=== PATIENT | male | born 2000 | race Caucasian/White ===

== ENCOUNTER 2023-12-19 15:15 | Emergency (ER) | payer BC, SELFPAY ==
[2023-12-19 15:27] VITALS: BP 134/89
[2023-12-19 16:24] VITALS: BMI 41.0
[2023-12-19 16:26] VITALS: BP 139/81
[2023-12-19 16:39] LABS: % Basophils 0.4 % (0-2); % Immature Granulocytes 1.9 % (0-0.5); % Lymphocytes 17.5 % (20.5-51.1); % Monocytes 11.8 % (1.7-9.3); % Neutrophils 68.4 % (42.2-75.2); Absolute Immature Granulocytes 0.1 10^3/uL (0-0.05); Absolute Lymphocytes 0.5 10^3/uL (1.2-3.4); Absolute Monocytes 0.3 10^3/uL (0.1-0.6); Absolute Neutrophils 1.8 10^3/uL (1.4-6.5); Hematocrit 45.9 % (39.0-52.0); Hemoglobin 16.2 g/dL (13.0-18.0); Mean Corp Hgb Conc. 35.3 g/dL (33.0-37.0); Mean Corpuscular Hgb 29.1 pg (27.0-31.0); Mean Corpuscular Volume 82.4 fL (80.0-94.0); Mean Platelet Volume 10.8 fL (7.4-10.4); Nucleated Red Blood Cells % 0 % (-); Platelet Count 121 10^3/uL (130-400); Red Blood Cell Count 5.57 10^6/uL (4.70-6.10); Red Cell Dist. Width 12.9 % (11.5-14.5); White Blood Cell Count 2.6 10^3/uL (4.8-10.8)
[2023-12-19 16:50] LABS: ALT (SGPT) 181 U/L (0-50); AST (SGOT) 196 U/L (17-59); Albumin 4.2 g/dl (3.5-5.0); Alkaline Phosphatase 87 U/L (38-126); Blood Urea Nitrogen 16 mg/dl (9-20); Calcium 9.1 mg/dl (8.4-10.2); Carbon Dioxide 26 mmol/L (22-30); Chloride 105 mmol/L (98-107); Estimated Creatinine Clearance > 125 ml/min; Glucose 102 mg/dl (70-99); Sodium 139 mmol/L (135-145); Total Bilirubin 1.5 mg/dl (0.2-1.3); Total Protein 6.9 g/dl (6.3-8.2); eGFR > 60.00
[2023-12-19] MEDS: NSS 1000 IV (17:29)
[2023-12-19 18:04] LABS: Monotest Negative (Negative)
[2023-12-19] MEDS: TORADOL 30 MG IV (18:32)
[2023-12-19 18:40] LABS: Hepatitis B Surface Antigen Negative (Negative)
[2023-12-19 18:58] LABS: Hepatitis B Core Ab, Total Negative (Negative); Hepatitis B Surface Antibody Negative; Hepatitis C Antibody Negative (Negative)
[2023-12-19 19:34] LABS: Hepatitis A Antibody, Total Positive (Negative)
--- NOTE | 2023-12-19 19:39 | EDRN ---
Updated patient and family on labs
--- NOTE | 2023-12-19 19:49 | ED.GENMED ---
History of Present Illness
General
Chief Complaint: Weakness
Source: patient
Exam Limitations: none
Time Seen by Provider: 12/19/23 16:11
Nursing documentation reviewed up to this point in time: agreed with
History of Present Illness
History of Present Illness:
22-year-old male presenting to the emergency department today with concerns of generalized fatigue lightheadedness nausea achiness diffusely over the past week or so. Denies any known exposures or any specific symptoms otherwise denies specific
vomiting any known tick exposures or upper respiratory illnesses.
Review of Systems
Review of Systems
Allergies reviewed?: Yes
All Other Systems: ROS reviewed and negative except as documented in HPI and ROS
Phy Exam
Physical Exam
Physical Exam:
GENERAL: Alert , in no apparent distress
EYE: pupils equal and reactive
NECK: Supple, no significant adenopathy.
ENT: o/p clr, mmm.
CARDIAC: Regular rate and rhythm .
LUNGS: Clear breath sounds bilaterally, no acute respiratory distress, no wheezes/rales/rhonchi
ABDOMEN: Soft, without focal tenderness, no r/g, no cvat
NEUROLOGICAL: Alert and oriented, no focal neuro deficits
SKIN: Warm and dry, skin intact.
MUSCULOSKELETAL: No edema, well perfused.
PSYCH: Normal and appropriate interaction.
Course
Orders/Labs/Results
Orders:
Orders
12/19/23 15:32
Electrocardiogram (*1) Urgent
Reason for Study: Chest Pain
EKG- Treatment ONCE
12/19/23 16:01
Complete Blood Count/With Diff Urgent
Comprehensive Metabolic Panel Urgent
12/19/23 17:28
0.9% Sodium Chloride 1000 ml [Nss] 1,000 ml IV BOLUS
12/19/23 17:30
Hepatitis A Antibody, Total Urgent
Hepatitis A IgM Antibody Urgent
Hepatitis B Core Ab, IgM Urgent
Hepatitis B Core Ab, Total Urgent
Hepatitis B Surface Antibody Urgent
Hepatitis B Surface Antigen Urgent
Hepatitis C Antibody Urgent
Lyme Progressive Urgent
Monotest Urgent
12/19/23 17:37
[facility] Spotted Fever IgG&IgM [S] Urgent
12/19/23 18:30
Ketorolac [Toradol] 30 mg .ROUTE .STK-MED ONE
12/19/23 18:32
Ketorolac [Toradol] 30 mg IV NOW STA
12/19/23 19:50
Doxycycline [Vibramycin] 100 mg PO NOW STA
Abnormal Lab Results
12/19/23
16:01
WBC 2.6 L 10^3/uL
(4.8-10.8)
Plt Count 121 L 10^3/uL
(130-400)
MPV 10.8 H fL
(7.4-10.4)
Abs Immat Gran (auto) 0.1 H 10^3/uL
(0-0.05)
Absolute Lymphs (auto) 0.5 L 10^3/uL
(1.2-3.4)
Immature Gran % 1.9 H %
(0-0.5)
Lymphocytes % 17.5 L %
(20.5-51.1)
Monocytes % 11.8 H %
(1.7-9.3)
Glucose 102 H mg/dl
(70-99)
Total Bilirubin 1.5 H mg/dl
(0.2-1.3)
AST 196 H U/L
(17-59)
ALT 181 H U/L
(0-50)
12/19/23 16:01
12/19/23 16:01
Vital Signs
Initial and Last Documented VS:
Initial Vital Signs
Temp Pulse Resp BP Pulse Ox
99.2 F 105 20 134/89 98
12/19/23 15:27 12/19/23 15:27 12/19/23 15:27 12/19/23 15:27 12/19/23 15:27
Last Documented Vital Signs
Temp Pulse Resp BP Pulse Ox
99.8 F 97 24 139/81 100
12/19/23 16:26 12/19/23 16:26 12/19/23 16:26 12/19/23 16:26 12/19/23 16:26
MDM/Problems Addressed
MDM/Problems Addressed:
22-year-old male presenting to the emergency department today with concerns of multiple symptoms including body aches nausea fatigue. Here no specific symptoms initially tachycardic but improving without specific treatment. Patient with a
low-grade temperature here in the high 99 degrees. Patient had a slight leukopenia and thrombocytopenia additionally had transaminitis. Acute hepatitis panel was ordered without evidence of acute infection. There was concern for potential tick
borne illness considering lab abnormalities, endemic region and vague symptoms with started on doxycycline otherwise advised for close outpatient follow-up for repeated labs and monitoring.
*Critical Care Note
Total Time (30-74mins, 75-104mins- exclusive of procedures): Not Applicable
ED Attending Note
-
Portions of this chart may have been created with voice recognition software.� Occasional wrong word or��sound alike� substitutions may have occurred due to the inherent limitations of voice recognition software.
Discharge Plan
Departure
Patient Disposition: Home (Routine Discharge)
Date of Disposition: 12/19/23
Time of Disposition: 19:49
Patient with high blood pressure during this ER visit?: No
Condition: Good
Covid-19: Not Applicable
Discharge Problem:
Fatigue, Nausea
Instructions: Generalized Weakness (DC)
Prescriptions:
New
doxycycline hyclate 100 mg tablet
100 mg PO BID 10 Days Qty: 20 0RF
No Action
dextroamphetamine-amphetamine [Adderall XR] 20 mg Capsule,Extended Release 24hr
20 mg PO DAILY
dextroamphetamine-amphetamine [Adderall] 5 mg Tablet
5 mg PO PRN PRN (Reason: ADD)
Referrals:
Lynn Aguila CRNP [Family Provider] -
Activity Restrictions/Additional Instructions:
You came to the emergency department today with vague symptoms. Here you had a low white count and elevated liver function test. This could be related to a tickborne illness. That testing is pending. Please take doxycycline twice daily for the
next 10 days and follow close with the primary care doctor for repeated blood test. Return to the emergency department for any worsening, new or concerning symptoms.
Interventions
Interventions:
*Risk Screen - Suicide Last Done: 12/19/23 15:27
*General Assessment Last Done: 12/19/23 15:27
*Neglect/Abuse Screening Last Done: 12/19/23 15:27
ED- Fall Risk Assessment Last Done: 12/19/23 16:24
*ED COVID-19 Vaccine History Last Done: 12/19/23 20:02
*Nursing Disposition Last Done: 12/19/23 20:02
ED- Cardiac Assessment Last Done: 12/19/23 16:24
ED- Neurological Assessment Last Done: 12/19/23 16:24
ED- Pulmonary Assessment Last Done: 12/19/23 16:24
Discharge Date and Time
Discharge Date/Time: 12/19/23 20:03
Print Language: DIVEHI
[2023-12-19] MEDS: VIBRAMYCIN 100 MG PO (19:52)
[2023-12-19 20:31] LABS: Hepatitis A IgM Antibody Negative (Negative)
[2023-12-22 16:02] LABS: Lyme Antibody Screen, EIA Negative (Negative)
[2023-12-22 16:49] LABS: RMSF IgG Antibodies <1:64 (<1:64); RMSF IgM Antibodies <1:64 (<1:64)
== END 2023-12-19 20:03 | disposition home or self-care (01) ==
LOC: EMR 15:15
PROVIDERS: Physician Assistant; EMERGENCY PHYSICIAN Emergency Medicine; FAMILY PHYSICIAN Nurse Practitioner Adult Health
DX: R53.83 Other fatigue (principal); R11.0 Nausea
CPT/HCPCS: 99284; 96374; 96361; 80053; 85025; 86308; 86618; 86704; 86705; 86706; 86708; 86709; 86757; 86803; 87340; 93005